=== PATIENT | female | born 1975 | race Caucasian/White ===

== ENCOUNTER 2023-08-28 23:08 | Emergency (ER) | payer OTHER, SELFPAY ==
[2023-08-28 23:17] VITALS: BP 137/65; PULSE 71; RESP 16; TEMP 37.3; O2SAT 99; BMI 28.3
--- NOTE | 2023-08-28 23:36 | ED_ITS ---
HPI - Psych General Chief Complaint: Psychiatric Symptoms Stated Complaint: psychotic episode Time Seen by Provider: 08/28/23 23:11 Source: patient and family Mode of arrival: Ambulatory Limitations: no limitations History of Present Illness HPI Narrative: Patient is a 48-year-old female. She states she does have a history of bipolar. She is here because she states she is in a manic/psychotic episode. She states that she has been taking her medications. She is on Prozac and Zyprexa. She denies suicidal ideation. Denies auditory visual hallucinations. States that she really has not been able to sleep over the past couple days which very often as what triggers her manic episodes. She states that if she can get some sleep she will most likely improve. Related Data Home Medications Medication Instructions Recorded Confirmed fluoxetine 20 mg tablet 30 mg PO 08/28/23 Allergies Allergy/AdvReac Type Severity Reaction Status Date / Time No Allergy Information Allergy Verified 08/28/23 23:24 Available Review of Systems Constitutional Constitutional: Reports system reviewed and no additional complaints, except as documented Psychiatric Psychiatric: Reports system reviewed and no additional complaints, except as documented Exam Initial Vital Signs Initial Vital Signs: Vital Signs Temperature 99.1 F 08/28/23 23:17 Pulse Rate 71 08/28/23 23:17 Respiratory Rate 16 08/28/23 23:17 Blood Pressure 137/65 08/28/23 23:17 Pulse Oximetry 99 08/28/23 23:17 Oxygen Delivery Method Room Air 08/28/23 23:17 Const General: cooperative and comfortable HENMT Head: normal to inspection and normocephalic Resp Effort & Inspection: normal respiratory effort Cardio Rate: regular rate Neuro General: patient alert, patient awake, patient oriented x3 and moves all extremities Psych Other: No suicidal or homicidal ideation. No auditory visual hallucinations. She is calm and cooperative. Does have a very flat affect. Course Orders Ordered: Discontinued Medications Lorazepam (Lorazepam 0.5 Mg Tablet) 1 mg PO NOW ONE Stop: 08/28/23 23:37 Last Admin: 08/28/23 23:45 Dose: 1 mg Documented By: OC Olanzapine (Olanzapine Odt 10 Mg Tab) 20 mg PO NOW ONE Stop: 08/28/23 23:37 Last Admin: 08/28/23 23:45 Dose: 20 mg Documented By: OC Vital Signs Vital signs: Vital Signs - 8 hr 08/28/23 23:17 Temperature 99.1 F Pulse Rate 71 Respiratory Rate 16 Blood Pressure 137/65 Pulse Oximetry 99 Oxygen Delivery Method Room Air MDM - Psych MDM Narrative Medical decision making narrative: When discussing her medication she states that she is on both Prozac and olanzap ine. She states she has been taking all these medications as directed however when she produced the medications from her purse she has Prozac in a tablet form and also Prozac and a capsule forearm. These are the same medication at the same dose however they are different appearing pills because 1 as a capsule and 1 as a tablet. There is a very high likelihood that she is not been taking her Zyprexa least for the past couple days. Patient does not need admitted to the hospital. No indication for an involuntary admission. We will give her dose of her Zyprexa here in the ER and also a dose of Ativan family at bedside states that Ativan has helped her in the past. Will discharge patient home for her to try to get some sleep. She will contact her mental health provider for a follow-up. Discharge Plan Departure Patient Disposition: Home Clinical Impression: Bipolar disorder Instructions: DI for Bipolar Disorder Activity Restrictions/Additional Instructions: Be sure that you take your medications at home so that you are taking both the olanzapine/Zyprexa and the fluoxetine/Prozac at the appropriate doses. Contact your mental health provider for follow-up. Prescriptions: No Action fluoxetine 20 mg tablet 30 mg PO Stand Alone Forms: Patient Portal/API
[2023-08-28] MEDS: OLANZapine ODT 10 MG TAB 20 MG PO (23:45)
[2023-08-28] MEDS: LORazepam 0.5 MG TABLET 1 MG PO (23:45)
== END 2023-08-28 23:53 | disposition home or self-care (01) ==
PROVIDERS: Emergency Provider Emergency Medicine
DX: F31.9 Bipolar disorder, unspecified (principal)
CPT/HCPCS: 99283

== ENCOUNTER 2023-08-31 17:13 | Emergency (ER) | payer OTHER, SELFPAY ==
[2023-08-31 17:23] VITALS: BP 135/64; PULSE 66; RESP 14; TEMP 36.7; O2SAT 98; BMI 29.2
[2023-08-31 18:42] VITALS: BP 133/75; PULSE 83; RESP 18; O2SAT 98
--- NOTE | 2023-08-31 19:05 | ED_ITS ---
HPI - Psych <Ann Marie Dukes MD - Last Filed: 09/01/23 02:45> General Chief Complaint: Psychiatric Symptoms Stated Complaint: Psychotic episode Time Seen by Provider: 08/31/23 18:47 Related Data Home Medications Medication Instructions Recorded Confirmed fluoxetine 20 mg tablet 30 mg PO 08/28/23 Allergies Allergy/AdvReac Type Severity Reaction Status Date / Time No Known Drug Allergies Allergy Verified 08/31/23 17:30 <Yuki Bowen PA-C - Last Filed: 08/31/23 19:51> General Source: patient and family Mode of arrival: Ambulatory History of Present Illness HPI Narrative: Patient is a 48 year old female with a history of bipolar disorder. Her mental health history started with psychosis 7 years ago. She has had multiple involuntary hospitalizations for chepe. She recently had to switch psychiatry providers due to insurance coverage and her new tank assembler (Rina Solares in [place]) discontinued her Abilify without a taper and started her on 2.5 mg of Zyprexa daily and 30 mg of fluoxetine daily. She has had increasing symptoms including racing thoughts, minimal appetite, unable to sleep over the past week. She was seen in the emergency department on 08/28/2023 and was given a one time dose of 20 mg of olanzapine PLUS 1 mg Ativan, after which she was able to sleep through the night. Patient is accompanied by her ex- who states this episode is different than in the past because she has insight that she is not doing well. He states that she seems slightly confused and more child-like than at her baseline. For example, she does not feel comfortable driving a car. She currently lives at home with her 3 children. Her ex- lives in [facility] and visits nearly daily. He is staying with her currently and can care for the children. Patient denies suicidal thoughts or plan. She does not want to be hospitalized, as she has had multiple prior hospitalizations and bad experiences. She feels safe at home but recognizes that she needs to sleep in order to prevent further deterioration of her mental health. Patient denies any symptoms of physical illness, such as fever, chills, cough, nausea vomiting, urinary symptoms. She reports she is drinking adequate water and voiding every couple hours. She does not know when her last labs were done but she thinks she had her thyroid checked within the last year. Review of Systems <Yuki Bowen PA-C - Last Filed: 08/31/23 19:51> Review of Systems ROS Unobtainable: All systems reviewed & are unremarkable except as noted in HPI and below Patient History <Ann Marie Dukes MD - Last Filed: 09/01/23 02:45> Social History Smoking Status: Never smoker <Yuki Bowen PA-C - Last Filed: 08/31/23 19:51> Smoking Status: Never smoker alcohol intake frequency: 0-2 drinks per day Substance Use Type: does not use Exam <Ann Marie Dukes MD - Last Filed: 09/01/23 02:45> Initial Vital Signs Initial Vital Signs: Vital Signs Temperature 98.1 F 08/31/23 17:23 Pulse Rate 66 08/31/23 17:23 Respiratory Rate 14 08/31/23 17:23 Blood Pressure 135/64 08/31/23 17:23 Pulse Oximetry 98 08/31/23 17:23 Oxygen Delivery Method Room Air 08/31/23 17:23 <Yuki Bowen PA-C - Last Filed: 08/31/23 19:51> Narrative Exam Narrative: GENERAL: 48 year old patient appears stated age. Patient is somewhat slow to respond to questions, she is smiling and pleasant but affect is somewhat flat. She has trouble finding words and frequently looks to her ex for help filling in the history. She does not know the doses of her medications and did not bring them with her. NEURO: AOx3. HEAD: Atraumatic. Normocephalic. EYES: Pupils equal round and reactive. Extraocular motions intact. No scleral icterus. No injection or drainage. ENT: Nose without bleeding or purulent drainage. RESPIRATORY: No distress SKIN: No rash or erythema of visible areas Initial Vital Signs Initial Vital Signs: Vital Signs Temperature 98.1 F 08/31/23 17:23 Pulse Rate 66 08/31/23 17:23 Respiratory Rate 14 08/31/23 17:23 Blood Pressure 135/64 08/31/23 17:23 Pulse Oximetry 98 08/31/23 17:23 Oxygen Delivery Method Room Air 08/31/23 17:23 Course <Ann Marie Dukes MD - Last Filed: 09/01/23 02:45> Orders Ordered: Discontinued Medications Olanzapine (Olanzapine Odt 10 Mg Tab) 20 mg PO NOW ONE Stop: 08/31/23 19:21 Last Admin: 08/31/23 19:26 Dose: 20 mg Documented By: AMV Vital Signs Vital signs: Vital Signs - 8 hr 08/31/23 19:30 Pulse Rate 75 Respiratory Rate 16 Blood Pressure 142/80 H Pulse Oximetry 98 Oxygen Delivery Method Room Air <Yuki Bowen PA-C - Last Filed: 08/31/23 19:51> Orders Ordered: Discontinued Medications Olanzapine (Olanzapine Odt 10 Mg Tab) 20 mg PO NOW ONE Stop: 08/31/23 19:21 Last Admin: 08/31/23 19:26 Dose: 20 mg Documented By: AMV Vital Signs Vital signs: Vital Signs - 8 hr 08/31/23 19:30 Pulse Rate 75 Respiratory Rate 16 Blood Pressure 142/80 H Pulse Oximetry 98 Oxygen Delivery Method Room Air MDM - Psych <Yuki Bowen PA-C - Last Filed: 08/31/23 19:51> [facility] Narrative Medical decision making narrative: Patient shows some insight into her illness and is able to identify that she does not feel like things are getting better. She is accompanied by her ex- who is able to give quite a bit of history and context. She denies any suicidal ideation or plan tonight and feels safe going home, but is worried that with she does not sleep she will not be able to get better and we will get worse. She denies any symptoms of physical illness, such as fever, chills, cough, nausea vomiting, urinary symptoms. She reports she is drinking adequate water and voiding every couple hours. She does not know when her last labs were done but she thinks she had her thyroid checked within the last year. Patient is unclear on the doses of her medications and did not bring them with her; I called [facility] pharmacy and they confirmed she is prescribed 2.5 mg of olanzapine QHS and 30 mg of fluoxetine daily. She was not given a schedule to titrate the dose up. Discussed patient with Dr. Dukes who advises me to give her a 20 mg dose of olanzapine now and have her take 5 mg in the morning and follow up with her psychiatric provider tomorrow as previously scheduled. If patient is not able to sleep tonight and continues to have these symptoms, she can return to the emergency room for reassessment and more medication. Patient's symptoms improved over duration of stay with above-stated therapies. Findings and discharge diagnosis discussed with patient/family followed by verbalization of understanding Return precautions discussed with patient/family whom verbalize understanding of diagnosis and plan Discharge Plan Departure Patient Disposition: Home Clinical Impression: Bipolar disorder Instructions: DI for Bipolar Disorder Activity Restrictions/Additional Instructions: * As we discussed, we will give you 20 mg of Zyprexa (olanzapine) in the emergency room tonight. I would advise that you take 2 tablets, which is 5 mg total, of your home dose of Zyprexa in the morning. Follow-up with your provider as scheduled tomorrow to discuss the symptoms you are having. I believe these symptoms are secondary to both your Abilify discontinuation and that you have not reached a therapeutic dose on your new medications. If you are not able to sleep tonight despite the increased dose, you can return to the emergency room for re-assessment. If you have any feelings of hurting yourself or others, please return to the emergency room or call 911. *What to do: *Please continue to take your regular medications as directed. [ ] New medication prescriptions sent to your pharmacy: [ ] [ ] New medication written as a paper prescription [x] No new medications given *Please follow up with your primary care provider in 2-3 days, call for an appointment. Let them know you were seen in the Emergency Department and that we ask that you be seen in follow up. We will electronically transmit a record of today's note if your PCP is in our system *If you do not have a primary care provider please contact the [facility] Resource line at [phone]. They will ask some questions about your medical history and help get you set up with a doctor in the community. *Return to Emergency Department if you should have any new, worsening or conc erning symptoms, such as [fever greater than 101 F, shaking chills, worsening pain, persistent vomiting or other concerning symptoms]. Prescriptions: No Action fluoxetine 20 mg tablet 30 mg PO Stand Alone Forms: Patient Portal/API ED Sign-out <Ann Marie Dukes MD - Last Filed: 09/01/23 02:45> Cosign ED Attending Cosignature Attestation: I was immediately available in the department for consultation throughout this patient's visit. Ann Marie Dukes MD
[2023-08-31] MEDS: OLANZapine ODT 10 MG TAB 20 MG PO (19:26)
[2023-08-31 19:30] VITALS: BP 142/80; PULSE 75; RESP 16; O2SAT 98
== END 2023-08-31 19:30 | disposition home or self-care (01) ==
PROVIDERS: Emergency Provider Physician Assistant
DX: F31.9 Bipolar disorder, unspecified (principal)
CPT/HCPCS: 99283

== ENCOUNTER 2023-09-02 17:32 | Emergency (ER) | payer OTHER, SELFPAY ==
[2023-09-02 17:36] VITALS: BP 139/74; PULSE 75; RESP 18; TEMP 36.6; O2SAT 98; BMI 28.3
[2023-09-02 18:24] LABS: Add Manual Diff / Slide Review NO; Basophils Absolute Auto 0 /uL (0-100); Basophils Percent Auto 0.5 % (0-2); Eosinophils Absolute Auto 0 /uL (0-450); Eosinophils Percent Auto 0.4 % (2-4); Hematocrit 36.8 % (36-46); Hemoglobin 12.5 g/dL (12.0-16.0); Lymphocytes Absolute Auto 2600 /uL (1100-4500); Lymphocytes Percent Auto 31.2 % (25-40); Mean Corpuscular HGB Conc 33.9 % (30-36); Mean Corpuscular Hemoglobin 31.7 PG (26-34); Mean Corpuscular Volume 93.4 fL (80-100); Monocytes Absolute Auto 600 /uL (0-900); Monocytes Percent Auto 6.9 % (3-14); Neutrophils Absolute Auto 5100 /uL (1500-7000); Platelet Count 247 X10^3/uL (150-400); Red Blood Cell Count 3.94 X10^6/uL (4.0-5.2); Red Cell Distribution Width 14.3 % (11.6-14.8); White Blood Cell Count 8.3 X10^3/uL (4.5-11.0)
[2023-09-02 18:51] LABS: Acetaminophen < 10 ug/mL (10-30); Alanine Aminotransferase 22 IU/L (<35); Albumin 4.6 g/dL (3.5-5.0); Albumin Globulin Ratio 1.4 (1.0-2.8); Alkaline Phosphatase 55 U/L (38-126); Aspartate Aminotransferase 25 IU/L (14-36); BUN Creatinine Ratio 17.5 (6-22); Bilirubin Total 0.4 mg/dL (0.2-1.3); Blood Urea Nitrogen 10 mg/dL (7-17); Calcium 9.3 mg/dL (8.4-10.2); Carbon Dioxide 26 mmol/L (22-32); Chloride 103 mmol/L (98-107); Estimated Glomerular Filt Rate > 60 mL/min (>60); Ethanol (ETOH) < 10 mg/dL; Globulin 3.2 g/dL (1.7-4.1); Glucose 115 mg/dL (70-100); HEMOLYSIS < 15 (0-50); Potassium 3.6 mmol/L (3.4-5.1); Salicylate < 1.0 mg/dL (<20); Sodium 138 mmol/L (137-145); Total Protein 7.8 g/dL (6.3-8.2)
[2023-09-02 19:11] LABS: Free T4, Direct Thyroxine 0.88 ng/dL (0.78-2.19)
[2023-09-02 19:12] LABS: HCG Quantitative /Beta subunit < 2.4 mIU/mL
[2023-09-02 19:21] LABS: UR Morphine/Opiate cutoff 300 Negative (Negative); Ur Creatinine Normal (Normal); Ur Specific Gravity Normal (Normal); Urine Amphetamines Negative (Negative); Urine Cocaine Negative (Negative); Urine Methamphetamines Negative (Negative); Urine Phencyclidine Negative (Negative); Urine Tetrahydrocannabinol Negative (Negative); Urine pH Normal (Normal)
[2023-09-02 19:22] LABS: Urine Barbiturates Negative (Negative); Urine Benzodiazepines Negative (Negative); Urine MDMA Negative (Negative); Urine Methadone Negative (Negative); Urine Oxycodone Negative (Negative); Urine Tricyclic Antidepressant Negative (Negative)
[2023-09-02 19:24] LABS: Amorphous Sediment Urine 2+; Bacteria Urine Many (>30); Culture Indicated Urine Specimen Cultured; RBC Urine 0-1/HPF (0-5/HPF); Squamous Epithelial Cell Urine 10-30 /HPF (0-5/HPF); WBC Urine 0-1/HPF (0-5/HPF)
[2023-09-02 19:25] LABS: Thyroid Stimulating Hormone 1.18 uIU/mL (0.47-4.68)
[2023-09-02 20:10] VITALS: BP 121/64; PULSE 64; RESP 18; O2SAT 100
[2023-09-02 21:57] VITALS: BP 123/60; PULSE 63; RESP 18; O2SAT 99
--- NOTE | 2023-09-02 22:06 | ED.PSYCH ---
HPI - Psych <Gabino Agrawal DO - Last Filed: 09/03/23 23:54> General Chief Complaint: Psychiatric Symptoms Stated Complaint: Having a psychotic break Time Seen by Provider: 09/02/23 18:02 Source: patient and family Mode of arrival: Ambulatory History of Present Illness HPI Narrative: 48-year-old female with history of bipolar returns after having a recent visit here for a manic and psychotic episode. She takes Prozac and Zyprexa after recently being switch from Abilify. This is her 3rd visit this week. It is reported that she has been having significant trouble sleeping with confusion and acting possessed. Patient requesting inpatient treatment to get meds figured out. She denies suicidal or homicidal ideation Related Data Home Medications Medication Instructions Recorded Confirmed fluoxetine 20 mg tablet 30 mg PO 08/28/23 Allergies Allergy/AdvReac Type Severity Reaction Status Date / Time No Known Drug Allergies Allergy Verified 08/31/23 17:30 Review of Systems <DO Ethel Vera Last Filed: 09/03/23 23:54> Review of Systems Narrative: GENERAL: Denies chills, fatigue, malaise, fever, sweats. HEENT: Denies sinus pain, ear pain, sore throat, difficulty swallowing, dizziness. RESPIRATORY: Denies dyspnea, cough, wheezing, hemoptysis, sputum. CARDIOVASCULAR: Denies chest pain, palpitations, orthopnea, edema, GASTROINTESTINAL: Denies nausea, vomiting, abdominal pain, diarrhea, constipation, melena. : Denies dysuria, frequency, incontinence, hematuria, urinary retention. MUSCULOSKELETAL: denies weakness, joint pain, or bony pain SKIN: Denies rash, skin lesions, or other NEUROLOGIC: Denies weakness, headache, numbness, change in speech, confusion, seizures, incoordination. PSYCHIATRIC: See HPI 12 point review of systems is negative except for those stated above Patient History <DO Ethel Vera Last Filed: 09/03/23 23:54> Social History Smoking Status: Never smoker Smoking Status: Never smoker alcohol intake frequency: 0-2 drinks per day Substance Use Type: does not use Exam <DO Ethel Vera Last Filed: 09/03/23 23:54> Narrative Exam Narrative: GEN: AOx3 and in mild distress EYES: Pupils are equal, round, and reactive to light and accommodation. Extraoccular muscles are intact bilaterally. There is no subconjunctival hemorrhage or exudate. CHEST: Lungs are clear to auscultation bilaterally and free of wheezes, rales, or rhonchi. Heart rate is regular rhythm, there are no murmurs, clicks, rubs, or gallops. There is no chest wall tenderness. ABD: Abdomen is soft and nontender. There is no guarding or rebound. Bowel sounds are normal in all 4 quadrants. There is no mass or organomegaly. EXT: Full painless ROM of all extremities with no loss of sensation or strength. SKIN: Warm, pink, and dry. No erythema or rash Initial Vital Signs Initial Vital Signs: Vital Signs Temperature 98 F 09/02/23 17:36 Pulse Rate 75 09/02/23 17:36 Respiratory Rate 18 09/02/23 17:36 Blood Pressure 139/74 09/02/23 17:36 Pulse Oximetry 98 09/02/23 17:36 Oxygen Delivery Method Room Air 09/02/23 17:36 <J Carlos Vivar, - Last Filed: 09/03/23 11:56> Initial Vital Signs Initial Vital Signs: Vital Signs Temperature 98 F 09/02/23 17:36 Pulse Rate 75 09/02/23 17:36 Respiratory Rate 18 09/02/23 17:36 Blood Pressure 139/74 09/02/23 17:36 Pulse Oximetry 98 09/02/23 17:36 Oxygen Delivery Method Room Air 09/02/23 17:36 Course <Gabino Agrawal, DO - Last Filed: 09/03/23 23:54> Orders Ordered: ED Orders 09/03/23 01:07 Consult to [facility] [employer] Stat Vital Signs Vital signs: Vital Signs - 8 hr 09/03/23 08:32 Pulse Rate 86 Respiratory Rate 16 Blood Pressure 117/59 L Pulse Oximetry 97 Oxygen Delivery Method Room Air <J Carlos Vivar, - Last Filed: 09/03/23 11:56> Orders Ordered: ED Orders 09/03/23 01:[facility] Vital Signs Vital signs: Vital Signs - 8 hr 09/03/23 08:32 Pulse Rate 86 Respiratory Rate 16 Blood Pressure 117/59 L Pulse Oximetry 97 Oxygen Delivery Method Room Air MDM - Psych <Gabino Agrawal, DO - Last Filed: 09/03/23 23:54> Lab Data 09/02/23 18:15 09/02/23 18:15 Labs: Lab Results 09/02/23 09/02/23 Range/Units 18:00 18:15 WBC 8.3 (4.5-11.0) X10^3/uL RBC 3.94 L (4.0-5.2) X10^6/uL Hgb 12.5 (12.0-16.0) g/dL Hct 36.8 (36-46) % MCV 93.4 (80-100) fL MCH 31.7 (26-34) PG MCHC 33.9 (30-36) % RDW 14.3 (11.6-14.8) % Plt Count 247 (150-400) X10^3/uL Neut % (Auto) 61.0 (50-75) % Lymph % (Auto) 31.2 (25-40) % Tyler % (Auto) 6.9 (3-14) % Eos % (Auto) 0.4 L (2-4) % Baso % (Auto) 0.5 (0-2) % Neut # (Auto) 5100 (3785-0909) /uL Lymph # (Auto) 2600 (0277-9155) /uL Tyler # (Auto) 600 (0-900) /uL Eos # (Auto) 0 (0-450) /uL Baso # (Auto) 0 (0-100) /uL Sodium 138 (137-145) mmol/L Potassium 3.6 (3.4-5.1) mmol/L Chloride 103 (98-107) mmol/L Carbon Dioxide 26 (22-32) mmol/L BUN 10 (7-17) mg/dL Creatinine 0.57 (0.52-1.04) mg/dL Estimated GFR > 60 (>60) mL/min BUN/Creatinine Ratio 17.5 (6-22) Glucose 115 H (70-100) mg/dL Calcium 9.3 (8.4-10.2) mg/dL Total Bilirubin 0.4 (0.2-1.3) mg/dL AST 25 (14-36) IU/L ALT 22 (<35) IU/L Alkaline Phosphatase 55 (38-126) U/L Total Protein 7.8 (6.3-8.2) g/dL Albumin 4.6 (3.5-5.0) g/dL Globulin 3.2 (1.7-4.1) g/dL Albumin/Globulin Ratio 1.4 (1.0-2.8) TSH 1.18 (0.47-4.68) uIU/mL Free T4 0.88 (0.78-2.19) ng/dL HCG, Quant < 2.4 mIU/mL Urine RBC 0-1/hpf (0-5/HPF) Urine WBC 0-1/hpf (0-5/HPF) Ur Squamous Epith Cells 10-30 /hpf H (0-5/HPF) Amorphous Sediment 2+ Urine Bacteria Many (>30) H (None) Ur Culture Indicated? Specimen cultured Salicylates < 1.0 (<20) mg/dL U Opiates 300ng/mL cut Negative (Negative) Ur Oxycodone Screen Negative (Negative) Urine Methadone Screen Negative (Negative) Acetaminophen < 10 (10-30) ug/mL Ur Barbiturates Screen Negative (Negative) U Tricyclic Antidepress Negative (Negative) Ur Phencyclidine Scrn Negative (Negative) Ur Amphetamines Screen Negative (Negative) U Methamphetamines Scrn Negative (Negative) Ur MDMA Scrn (Ecstasy) Negative (Negative) U Benzodiazepines Scrn Negative (Negative) Urine Cocaine Screen Negative (Negative) U Marijuana (THC) Screen Negative (Negative) Ethyl Alcohol < 10 ( - 10) mg/dL Urine Dip Bedside Urine Glucose Negative Bedside Urine Bilirubin - Negative Bedside Urine Ketone + 15 Urine Specific [place] 1.015 Bedside Urine Occult Blood - Negative Bedside Urine pH 6.0 Bedside Urine Protein - Negative Bedside Urine Urobilinogen - Negative Bedside Urine Nitrite - Negative Bedside Urine Leukocytes - Negative Esterase MDM Narrative Medical decision making narrative: [48] year old patient presents with psychiatric complaints, no suicidal or homicidal ideation Prior Charts reviewed in our EMR Primary Historian: patient Labs reviewed and interpreted by myself: No significant abnormalities requiring immediate intervention Consultations: Patient has escalating mental health complaints and though she is not suicidal or homicidal is having worsening symptoms and difficulty performing ADLs despite taking her medications and even with recent medication changes. She is requesting hospitalization and has the cognitive since to do so. She is medically cleared and appropriate for hospitalization. [facility] [employer] consult is placed <J Carlos Vivar DO - Last Filed: 09/03/23 11:56> Lab Data Labs: Lab Results 09/02/23 09/02/23 Range/Units 18:00 18:15 WBC 8.3 (4.5-11.0) X10^3/uL RBC 3.94 L (4.0-5.2) X10^6/uL Hgb 12.5 (12.0-16.0) g/dL Hct 36.8 (36-46) % MCV 93.4 (80-100) fL MCH 31.7 (26-34) PG MCHC 33.9 (30-36) % RDW 14.3 (11.6-14.8) % Plt Count 247 (150-400) X10^3/uL Neut % (Auto) 61.0 (50-75) % Lymph % (Auto) 31.2 (25-40) % Tyler % (Auto) 6.9 (3-14) % Eos % (Auto) 0.4 L (2-4) % Baso % (Auto) 0.5 (0-2) % Neut # (Auto) 5100 (7749-5087) /uL Lymph # (Auto) 2600 (4625-5292) /uL Tyler # (Auto) 600 (0-900) /uL Eos # (Auto) 0 (0-450) /uL Baso # (Auto) 0 (0-100) /uL Sodium 138 (137-145) mmol/L Potassium 3.6 (3.4-5.1) mmol/L Chloride 103 (98-107) mmol/L Carbon Dioxide 26 (22-32) mmol/L BUN 10 (7-17) mg/dL Creatinine 0.57 (0.52-1.04) mg/dL Estimated GFR > 60 (>60) mL/min BUN/Creatinine Ratio 17.5 (6-22) Glucose 115 H (70-100) mg/dL Calcium 9.3 (8.4-10.2) mg/dL Total Bilirubin 0.4 (0.2-1.3) mg/dL AST 25 (14-36) IU/L ALT 22 (<35) IU/L Alkaline Phosphatase 55 (38-126) U/L Total Protein 7.8 (6.3-8.2) g/dL Albumin 4.6 (3.5-5.0) g/dL Globulin 3.2 (1.7-4.1) g/dL Albumin/Globulin Ratio 1.4 (1.0-2.8) TSH 1.18 (0.47-4.68) uIU/mL Free T4 0.88 (0.78-2.19) ng/dL HCG, Quant < 2.4 mIU/mL Urine RBC 0-1/hpf (0-5/HPF) Urine WBC 0-1/hpf (0-5/HPF) Ur Squamous Epith Cells 10-30 /hpf H (0-5/HPF) Amorphous Sediment 2+ Urine Bacteria Many (>30) H (None) Ur Culture Indicated? Specimen cultured Salicylates < 1.0 (<20) mg/dL U Opiates 300ng/mL cut Negative (Negative) Ur Oxycodone Screen Negative (Negative) Urine Methadone Screen Negative (Negative) Acetaminophen < 10 (10-30) ug/mL Ur Barbiturates Screen Negative (Negative) U Tricyclic Antidepress Negative (Negative) Ur Phencyclidine Scrn Negative (Negative) Ur Amphetamines Screen Negative (Negative) U Methamphetamines Scrn Negative (Negative) Ur MDMA Scrn (Ecstasy) Negative (Negative) U Benzodiazepines Scrn Negative (Negative) Urine Cocaine Screen Negative (Negative) U Marijuana (THC) Screen Negative (Negative) Ethyl Alcohol < 10 ( - 10) mg/dL Urine Dip Bedside Urine Glucose Negative Bedside Urine Bilirubin - Negative Bedside Urine Ketone + 15 Urine Specific [place] 1.015 Bedside Urine Occult Blood - Negative Bedside Urine pH 6.0 Bedside Urine Protein - Negative Bedside Urine Urobilinogen - Negative Bedside Urine Nitrite - Negative Bedside Urine Leukocytes - Negative Esterase MDM Narrative Medical decision making narrative: [48] year old patient presents with psychiatric complaints, no suicidal or homicidal ideation Prior Charts reviewed in our EMR Primary Historian: patient Labs reviewed and interpreted by myself: No significant abnormalities requiring immediate intervention Consultations: Patient has escalating mental health complaints and though she is not suicidal or homicidal is having worsening symptoms and difficulty performing ADLs despite taking her medications and even with recent medication changes. She is requesting hospitalization and has the cognitive since to do so. She is medically cleared and appropriate for hospitalization. [facility] SERV[employer] consult is placed Dr Vivar: Received turned over. Review patient's history and physical exam. Patient was seen by social work this morning. According to social work patient is calm and cooperative. Not manic. Patient has been ambulatory. Tolerated oral intake. Patient states she would like to be discharged home. Patient's ex- who is at bedside will be able to take care of her kids. She has follow-up already scheduled for the beginning of next week. Discharge Plan Departure Patient Disposition: Xfer Psychiatric Hosp Clinical Impression: Bipolar disorder, Jenny Activity Restrictions/Additional Instructions: Recommend that you continue to take all of your medications as directed and keep all of your scheduled medical appointments. Return to the emergency department for new or worsening symptoms. Prescriptions: No Action fluoxetine 20 mg tablet 30 mg PO
[2023-09-02 22:57] VITALS: PULSE 82; O2SAT 100
[2023-09-02 22:58] VITALS: BP 134/76; PULSE 82; O2SAT 99
[2023-09-03 08:32] VITALS: BP 117/59; PULSE 86; RESP 16; O2SAT 97
--- NOTE | 2023-09-03 12:19 | CM.SWNOTE ---
LEATHER SHAVER Assessment Note Patient is 48 y/o female who presents to ED for the 3rd time this week due to concern for chepe and psychotic episode after recent medication changes. Patient has new rx for Prozac and Zyprexa and patient states she was not waned off of previous medication Abilify. Upon inital arrival per ED provider report, patient was voluntary for inpatient hospitalization. LEATHER SHAVER enters room to meet with patient. Patient presents as A/Ox4, calm, communicative, euthymic, full range. Patient endorses she presented to ED because she was not feeling myself. Patient endorses the recent medication changes. Patient endorses difficulty sleeping and managing daily needs. Patient denies SI or HI. Patient endorses hx of hospitalizations and states her last hospitalization was in 2018 voluntarily. Patient endorses she has a new controller repairer and tester Sil Solares, had a recent appt with her the other day and has another appt with her on Thursday morning. Patient endorses she has a PCP Dr. Fong, and a therapist that she sees every two weeks at [facility]. LEATHER SHAVER was unable to identify this clinic. Patient endorses she resides in [place], co-parents with her ex who lives in [place], patient has 3 kids. Patient endorses preference to d/c to home, patient states she plans to take it easy for the next three days and states her ex can care for the kids and patient will not have any responsibilities. Patient endorses she has access to crisis numbers to call if needed. Patient endorses she takes rx as prescribed and uses a pill sorter. Patient endorses he ex can pick patient up upon d/c. Patient endorses she would like a second opinion and states her prescriber is new to her, LEATHER SHAVER provides patient with list of Psychiatrists that accept her insurance. It is the opinion of this LEATHER SHAVER that patient is safe for d/c upon medical clearance, she is not voluntary for treatment and at this time patient is not presenting with grave disability. LEATHER SHAVER reviews this with ED provider who indicates agreement and understanding. Plan: patient to d/c to home with former spouse, patient to f/u with controller repairer and tester on Thursday and f/u with team. RIP DickersonSW
[2023-09-03 12:26] VITALS: BP 132/69; PULSE 86; RESP 18; TEMP 36.9; O2SAT 96
== END 2023-09-03 12:27 ==
PROVIDERS: Emergency Medicine; Emergency Provider Emergency Medicine
DX: F31.9 Bipolar disorder, unspecified (principal)
CPT/HCPCS: 36415; 80053; 80305; 80320; 80329; 81003; 81015; 84439; 84443; 84702; 85025; 87086; 99284; G0480